=== PATIENT | male | born 1970 | race Caucasian/White ===

== ENCOUNTER 2017-04-24 04:25 | Inpatient (IN) | payer OTHER ==
[~2017-04-24] VITALS: Ht 172.7 cm; Wt 76.7 kg
--- NOTE | ~2017-04-24 | S ---
[facility] [place] [address] SURGICAL PATH RPT PROCEDURE Name: SHARON CORBIN Room #: 306-P [facility] IN M.R.#: [id number] Admission: 04/24/17 Date of : 66 Discharge: 04/26/17 Report #: [id number] Path Case #: [id number] PATHOLOGY REPORT COLLECTION DATE: 04/25/2017 RECEIVED DATE: 04/26/2017 SUBMITTING PHYS: Dr. Dony Gonzales OTHER PHYS: Dr. Roberto Thomas SPECIMEN(S) RECEIVED: A.Gallbladder * * * * * * * * * * * * FINAL DIAGNOSIS: Gallbladder, cholecystectomy: - Marked acute and hemorrohagic cholecystitis associated with ulceration. - Cholelithiasis. PATHOLOGIST: Tamia Blair M.D. REPORT ELECTRONICALLY SIGNED BY: Tamia Blair M.D. DATE/TIME: 04/27/2017 12:42 * * * * * * * * * * * * GROSS PATHOLOGY: Received in formalin labeled "Sharon Corbin, gallbladder," is a 6.5 x 2.4 x 2.2 cm, previously opened gallbladder with pink-collins and shaggy serosal surfaces. The previously opened gallbladder reveals velvety and light brown mucosa and an average wall thickness of 0.1 cm. A single dark brown, granular calculus is present and no masses are noted grossly. High School Band Teacher sections from the body and fundus are submitted along with the proximal margin in cassette A1. (KAH; 04/26/2017) CLINICAL HISTORY: Acute cholecystitis with cholelithiasis INITIAL CPT CODE(S): A; 25279 Professional services performed by [facility] at [facility] [address], [place] [address] Technical services performed by [facility] at [address] [place] [address] [place] [address] SURGICAL PATH RPT PROCEDURE Name: SHARON CORBIN Room #: 306-P [facility] IN M.R.#: [id number] Admission: 04/24/17 Date of : 66 Discharge: 04/26/17 Report #: [id number] Path Case #: [id number] [address]. [facility] [address] [address] PHONE: [phone] DIRECTOR: Joey Escamilla M.D. * * * END OF REPORT * * *
--- NOTE | ~2017-04-24 | D ---
[facility] [place] [address] DISCHARGE SUMMARY Name: SHARON HELLER Room #: 306-P [facility] IN ..#: [id number] Admission: 04/24/17 Attend Phys: Roberto Tello MD Discharge: 04/26/17 Date of : 66 Report #: [id number] THIS REPORT FOR: //name// CC: NEIDA physician/PCP Roberto Tello DATE OF SERVICE: 04/26/2017 HISTORY OF PRESENT ILLNESS: The patient is a 46-year-old man with no major problems, who was admitted to the hospital for abdominal pain. The patient was found to have cholecystitis. On the CT scan, he also had questionable celiac artery dissection, but based on interventional radiologist evaluation, that was chronic finding, and very unlikely cause of abdominal pain. HOSPITALIZATION COURSE: The patient was hospitalized at [facility]. Lipase level was normal. General surgeon was consulted. The patient had cholecystectomy on 04/25/2017. Postop course was uncomplicated, and the patient did well after surgery. His p.o. intake currently is well established. Currently, the patient's condition is acceptable, as documented in the patient's chart. DISCHARGE DIAGNOSES: 1. Cholelithiasis and cholecystitis, status post cholecystectomy on 04/25/2017. 2. Chronic celiac artery dissection, observed 2 years ago and on this admission on the CT scan. Seen by interventional radiologist, and no further treatment was recommended at this time. 3. Leukocytosis, resolving. 4. History of meth and marijuana abuse. DISCHARGE MEDICATIONS: Please refer to the medication reconciliation list. FOLLOWUP PLAN: 1. Follow up in general surgery clinic as advised. 2. Follow up with the primary care physician as planned. By: 1037 1625 Roberto Tello MD /nt
--- NOTE | ~2017-04-24 | O ---
[facility] [place] [address] OPERATIVE REPORT Name: SHARON HELLER Room #: 306-P [facility]..#: [id number] Admission: 04/24/17 Attend Phys: Roberto Tello MD Discharge: 04/26/17 Date of : 66 Report #: [id number] THIS REPORT FOR: //name// CC: NEIDA physician/PCP Roberto Tello DATE OF SERVICE: 04/25/2017 PREOPERATIVE DIAGNOSES: Acute cholecystitis with cholelithiasis. POSTOPERATIVE DIAGNOSES: Acute cholecystitis with cholelithiasis. OPERATIVE PROCEDURE: Laparoscopic cholecystectomy with intraoperative cholangiogram. SURGEON: Dony Gonzales M.D. REGISTERED NURSES: Galileo Thomas M.D. INDICATIONS: This 46-year-old male has 24-48 hours of upper abdominal pain associated with CT scan demonstrating acute cholecystitis and cholelithiasis. No other intra-abdominal pathology is noted. The patient's liver function tests are within normal limits. OPERATIVE PROCEDURE: The patient had a thorough discussion of procedure, benefits and risks. He gave informed consent to proceed. He was on preoperative IV antibiotics. He was brought to the operating room suite and had satisfactory induction of general endotracheal anesthesia. The patient's entire abdomen was prepped and draped in usual sterile procedure with DuraPrep solution. After draping was completed, an appropriate timeout was then performed. 0.5% plain Naropin was injected at all 4 trocar sites. Initially, an infraumbilical cutdown was performed with the visualization into the peritoneal cavity under direct control; 12 mm trocar port was then placed under direct control. The balloon inflated. Pneumoperitoneum was established. The patient was placed in reverse Trendelenburg position. An upper 5 mm midline trocar was placed just to the right of the falciform ligament. Two lateral 5 mm trocar ports were placed under direct vision. The gallbladder was somewhat thickened, slightly contracted with a large stone present. The wall was thickened. The gallbladder was grasped and retracted in a cephalad and lateral manner. The cystic duct triangle was clearly delineated. The cystic duct was identified. It was milked in a retrograde manner. A clip was placed toward the gallbladder. A cystotomy was performed and the taut cholangiocatheter was inserted under direct vision. Catheter was held in place with a clip. An intraoperative cholangiogram demonstrated free flow of contrast into the duodenum. The proximal hepatic biliary ductal system was well visualized without filling defect. The taut catheter was removed. The cystic duct was [address] [address] OPERATIVE REPORT Name: HELLERSHARON Room #: 306-P [facility] IN [facility].#: [id number] Admission: 04/24/17 Attend Phys: Roberto Tello MD Discharge: 04/26/17 Date of : 66 Report #: [id number] then triply ligated and divided with Sonicision. The cystic artery was identified and doubly ligated. The cystic artery was also divided with the Sonicision. The entire gallbladder was resected from the gallbladder bed with the Sonicision. After it was resected, it was placed into an Endobag and including the large stone were placed into an Endobag and removed from peritoneal cavity. A kzlhwm-[id number]-[id number] 0 PDS suture was placed at the level of the infraumbilical port incision under direct vision. The 12 mm trocar was reinstituted and inflated. Copious irrigation evacuation of all irrigating contents was accomplished. The gallbladder bed was dry. It was cauterized with the electrocautery for its entire bed of the gallbladder. Photographs were taken and made part of the medical record. Quan was sprayed into the gallbladder bed. A 15-Lithuanian HERNANDEZ drain was brought out through a lateral port site after final inspection revealing no other intraabdominal pathology. A photograph was taken of the medial aspect of the lateral lobe of the liver, which appeared to demonstrate a 2-3 cm hemangioma adjacent to the falciform ligament slightly to the left of falciform ligament. The trocars were removed under direct vision. The pneumoperitoneum was evacuated. The 0 PDS suture was ligated in place. Skin margins were approximated with subcuticular 4-0 Monocryl. Dermabond was applied. The estimated blood loss was approximately 50 mL. The patient tolerated the procedure well and he returned to the recovery room in stable and satisfactory condition. The drain was sutured in place with 2-0 nylon suture. <ELECTRONICALLY SIGNED> By: Dony Gonzales MD, FACS 04/27/17 0959 [id number] Dony Gonzales MD, FACS /nt
--- NOTE | ~2017-04-24 | EKG ---
[place] [address] [facility] [place] [address] ELECTROCARDIOGRAM REPORT Name: SHARON HELLER Room #: [facility]#: [id number] Admission: 04/24/17 Attend Phys: Discharge: Date of : 66 Report #: [id number] THIS REPORT FOR: //name// 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 04/24/17 [id number] Ez Barraza MD, FACC /EPI
--- NOTE | ~2017-04-24 | H ---
[facility] [place] [address] HISTORY AND PHYSICAL Name: SHARON HELLER Room #: 306-P ADM IN M.R.#: [id number] Admission: 04/24/17 Attend Phys: Roberto Tello MD Discharge: Date of : 66 Report #: [id number] THIS REPORT FOR: //name// CC: NEIDA physician/PCP Roberto Tello DATE OF SERVICE: 04/24/2017 CHIEF COMPLAINT: Abdominal pain. HISTORY OF PRESENT ILLNESS: The patient is a 46-year-old man who presented to the emergency room with abdominal pain, that was started around 01:30 a.m. The patient states that the pain started suddenly. He had abdominal pain about a year ago, and at that time, he was diagnosed with pancreatitis. At this time, his lipase level is normal. The patient has no major medical problems. He had CT scan of the abdomen in the emergency room that revealed large gallstone. Right upper quadrant ultrasound was consistent with possible cholecystitis. The patient has mild leukocytosis, but otherwise he has been stable. CT of the abdomen also showed possible celiac artery dissection. Interventional radiologist is already consulted. According to the report I received from the emergency room, this is unlikely to be an acute issue and the patient will be followed. The patient has already seen by general surgeon and he will likely have cholecystectomy. PAST MEDICAL HISTORY: History of pancreatitis about a year ago. CURRENT MEDICATIONS: [place] as needed. FAMILY HISTORY: Reviewed and not pertinent to the current condition. SOCIAL HISTORY: The patient uses methamphetamines and marijuana. He quit drinking alcohol 4-5 years ago. He smokes cigarettes. REVIEW OF SYSTEMS: As above in the HPI section, all others negative. PHYSICAL EXAMINATION: GENERAL: The patient is healthy looking young man, who is uncomfortable due to ongoing symptoms. VITAL SIGNS: His blood pressure is 108/68, heart rate is 62, respirations are 16 and temperature is 97.8. HEENT EXAMINATION: Pupils are equal. Eye movements are intact. Oral mucosa is dry. NECK: JVD is not present. Thyromegaly is not palpated. [facility] [address] [place] [address] HISTORY AND PHYSICAL Name: SHARON HELLER Room #: 306-P [facility] IN [facility].#: [id number] Admission: 04/24/17 Attend Phys: Roberto Tello MD Discharge: Date of : 66 Report #: [id number] RESPIRATORY EXAMINATION: The patient has clear lungs bilaterally. Chest moves with breathing symmetrically. CARDIOVASCULAR EXAMINATION: The patient has normal S1 and S2. He has regular rhythm and rate. GASTROINTESTINAL EXAMINATION: The patient has tenderness mostly in the epigastric region and right upper quadrant, which is worse with inspiration. He has diminished bowel sounds. He has no rebound tenderness. MUSCULOSKELETAL EXAMINATION: The patient has no joint deformities. His range of motion is normal. NEUROLOGICAL EXAMINATION: The patient is alert and oriented times 3. His examination is nonfocal. SKIN EXAMINATION: Skin is dry and warm. Skin lesions are not appreciated. LABORATORY DATA: Metabolic profile is essentially normal. Liver function tests are normal. Bilirubin is also normal. Actually troponin is undetectable. Lipase level is normal at 172. On CBC, white count is 15.3 with lymphocytes of 21, bands of 3% and neutrophils 66.6%. Hemoglobin is 13.2, hematocrit is 48.3 and platelets are 309,000. Imaging study results, as above in the HPI section. ASSESSMENT AND PLAN: 1. Cholecystitis. General surgeon is consulted. The patient will likely have cholecystectomy. Consultation is very much appreciated. 2. Possible celiac artery dissection based on the CT scan report. As noted, the films were already reviewed by interventional radiologist and this does not seem to be an acute problem. Consultation is appreciated. 3. Pain and nausea, related to cholecystitis, symptomatic treatment will be continued. 4. Marijuana and methamphetamine abuse. Advised to quit. No evidence of withdrawal. 5. Leukocytosis. Although the patient does not have findings of systemic infection, we will start him on empiric antibiotics for now, which will be de-escalated as possible. By: 1215 1258 Roberto Tello MD /nt
--- NOTE | ~2017-04-24 | HC ---
[facility] [place] [address] CONSULTATION Name: HELLERSHARON Priti Room #: 306-P [facility] IN ..#: [id number] Admission: 04/24/17 Attend Phys: Roberto Tello MD Discharge: 04/26/17 Date of : 66 Report #: [id number] THIS REPORT FOR: //name// CC: NEIDA physician/PCP Roberto Tello DATE OF SERVICE: 04/24/2017 HISTORY OF PRESENT ILLNESS: I have been asked to evaluate this 46-year-old male who presented to the Emergency Department with a chief complaint of abdominal pain. The abdominal pain began abruptly at approximately 0100, the patient states the pain started suddenly, awakened him from sleep. He has had a similar episode one year ago and was admitted and diagnosed with pancreatitis. He has known gallbladder disease since that time. The patient also had a CT scan in the Emergency Department, demonstrating a large gallbladder stone with sludge. The patient has a normal lipase level at this time. The pain radiated across his upper abdomen and he has had no associated nausea or vomiting. The pain has been somewhat unrelenting. The CT of the abdomen also demonstrated a possible celiac artery stricture or dissection. Interventional Radiology does not confirm this, this has been present on previous CT scans. PAST MEDICAL HISTORY: History of pancreatitis 1 year ago. PAST SURGICAL HISTORY: Negative. MEDICATIONS: Currently, hydrocodone as needed. FAMILY HISTORY: Unremarkable. 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 The patient uses amphetamines and marijuana on a fairly regular basis. He also quit drinking significant alcohol approximately 4-5 years ago. He has 20-plus pack year history of cigarette smoking. REVIEW OF SYSTEMS: A 10-point review of systems essentially negative except for recent onset of the acute abdominal pain. PHYSICAL EXAMINATION: GENERAL: Reveals a well-developed, well-nourished male, in some distress. He is afebrile. VITAL SIGNS: Stable. HEENT: Pupils are equal. No scleral icterus is noted. NECK: Supple, no adenopathy. LUNGS: Clear at the bases bilaterally. CARDIOVASCULAR: Regular rate and rhythm. ABDOMEN: Marked tenderness in the midepigastric and right upper quadrant. No [facility] [address] [place] [address] CONSULTATION Name: SHARON HELLER Room #: 306-P [facility] IN [facility]#: [id number] Admission: 04/24/17 Attend Phys: Roberto Tello MD Discharge: 04/26/17 Date of : 66 Report #: [id number] palpable mass. No scars from previous surgery. RECTAL: Not performed. NEUROLOGIC: Oriented x 3, bilateral motor symmetry. LABORATORY DATA: Review of laboratory demonstrates liver function tests within normal limits. The patient does have a leukocytosis of 15,300 with a left shift. CT scan is consistent with cholelithiasis and thickening of the gallbladder wall. DIAGNOSTIC IMPRESSION: Acute cholecystitis with cholelithiasis. I will recommend IV antibiotics, proceeding with laparoscopic cholecystectomy in the a.m. Thank you for allowing us to participate in his care. <ELECTRONICALLY SIGNED> By: Dony Gonzales MD, FACS 04/27/17 0959 1346 0006 Dony Gonzales MD, FACS /nt
[~2017-04-24 04:25] MED LIST: NORCO 5-325 TA1 EACH PO; REGLAN 10 MG TA10 MG PO
[2017-04-24 04:30] VITALS: BP 144/73
[2017-04-24 05:07] LABS: ABSOLUTE NEUTROPHILS 10.2 thou/uL (1.4-8.2); BASOPHILS 0.6 % (0.0-2.0); HEMATOCRIT 40.3 % (42.0-52.0); HEMOGLOBIN 13.2 gm/dL (14.0-18.0); LYMPHOCYTES 21.5 % (24.0-44.0); MCH 28.9 pg (26.0-34.0); MCHC 32.7 g/dL (28.0-37.0); MCV 88.5 fL (80.0-100.0); MONOCYTES 7.3 % (1.0-8.0); PLATELET COUNT 309 thou/uL (150-400); POLYS 66.6 % (36.0-66.0); RBC 4.55 mil/uL (4.50-6.00); RDW 13.8 % (10.5-14.5); WBC 15.3 thou/uL (4.0-11.0)
[2017-04-24 05:08] LABS: MANUAL DIFF NO
[2017-04-24 05:16] LABS: ANION GAP 10 mmol/L (7-16); BUN 18 mg/dL (7-18); CALCIUM 9.2 mg/dL (8.5-10.1); CHLORIDE 107 mmol/L (98-107); CO2 27 mmol/L (21-32); CREATININE 1.2 mg/dL (0.7-1.3); GLUCOSE 134 mg/dL (74-106); POTASSIUM 4.2 mmol/L (3.5-5.1); SODIUM 144 mmol/L (136-145)
[2017-04-24 05:25] LABS: ALBUMIN 4.1 g/dL (3.4-5.0); ALKALINE PHOSPHATASE 67 U/L (46-116); DIRECT BILIRUBIN < 0.1 mg/dL (<0.1-0.3); SGOT 16 U/L (15-37); SGPT 25 U/L (30-65); TOTAL BILIRUBIN 0.2 mg/dL (<0.1-1.0); TOTAL PROTEIN 7.8 g/dL (6.4-8.2); TROPONIN-I < 0.04 ng/mL (<0.04-0.07)
[2017-04-24 09:14] LABS: URINE BILIRUBIN NEGATIVE (Negative); URINE BLOOD NEGATIVE (Negative); URINE COLOR YELLOW; URINE GLUCOSE-RANDOM* NEGATIVE (Negative); URINE KETONES NEGATIVE (Negative); URINE NITRITE NEGATIVE (Negative); URINE PROTEIN (DIPSTICK) NEGATIVE (Negative); URINE UROBILINOGEN 0.2 E.U./dl (0.2-1.0)
[2017-04-24 10:04] VITALS: BP 108/68
[2017-04-24 16:45] VITALS: BP 107/73
[2017-04-24 20:10] VITALS: BP 103/72
[2017-04-25] VITALS (10 sets, daily range): BP systolic 104–125; BP diastolic 61–76
[2017-04-25 05:51] LABS: ABSOLUTE NEUTROPHILS 7.2 thou/uL (1.4-8.2); BASOPHILS 0.5 % (0.0-2.0); EOSINOPHILS 3.2 % (0.0-3.0); HEMATOCRIT 36.7 % (42.0-52.0); HEMOGLOBIN 12.5 gm/dL (14.0-18.0); LYMPHOCYTES 17.9 % (24.0-44.0); MCH 29.8 pg (26.0-34.0); MCV 87.6 fL (80.0-100.0); MONOCYTES 7.8 % (1.0-8.0); PLATELET COUNT 268 thou/uL (150-400); POLYS 70.6 % (36.0-66.0); RBC 4.18 mil/uL (4.50-6.00); RDW 13.6 % (10.5-14.5); WBC 10.2 thou/uL (4.0-11.0)
[2017-04-25 06:01] LABS: MANUAL DIFF NO
[2017-04-25 06:22] LABS: ALBUMIN 3.1 g/dL (3.4-5.0); CALCIUM 8.4 mg/dL (8.5-10.1); CREATININE 0.9 mg/dL (0.7-1.3); POTASSIUM 3.8 mmol/L (3.5-5.1); TOTAL BILIRUBIN 0.7 mg/dL (<0.1-1.0)
[2017-04-25 21:16] LABS: HEMATOCRIT 37.2 % (42.0-52.0); HEMOGLOBIN 12.4 gm/dL (14.0-18.0); MCH 29.3 pg (26.0-34.0); MCHC 33.3 g/dL (28.0-37.0); MCV 87.9 fL (80.0-100.0); RBC 4.24 mil/uL (4.50-6.00); RDW 13.4 % (10.5-14.5); WBC 11.6 thou/uL (4.0-11.0)
[2017-04-26 00:13] VITALS: BP 110/73
[2017-04-26 04:19] VITALS: BP 110/67
[2017-04-26 07:34] VITALS: BP 131/66
[2017-04-26] MEDS ORDERED: FLAGYL500 MG PO ×2 (10:41→10:44)
[2017-04-26] MEDS ORDERED: CEFPODOXIME PR200 M1 PO ×2 (10:42→10:44)
[2017-04-26] MEDS ORDERED: ONDANSETRON HCL4 M2 PO ×2 (10:42→10:44)
[2017-04-26] MEDS ORDERED: HYDROCODONE-APA1 TA1 PO (10:42)
[2017-04-26 11:46] VITALS: BP 131/66
== END 2017-04-26 12:10 | disposition home or self-care (01) | DRG 417 ==
LOC: ER 04:25 → 3N 09:26 → EROBS 09:26 → 3N 10:20
PROVIDERS: Emergency Medicine; Internal Medicine Endocrinology, Diabetes & Metabolism; Surgery
DX: K80.00 Calculus of gallbladder with acute cholecystitis without obstruction (principal); I77.79 Dissection of other specified artery; F17.210 Nicotine dependence, cigarettes, uncomplicated; F15.10 Other stimulant abuse, uncomplicated; F12.10 Cannabis abuse, uncomplicated; D72.829 Elevated white blood cell count, unspecified; Z88.0 Allergy status to penicillin; Z88.6 Allergy status to analgesic agent; Z79.899 Other long term (current) drug therapy
CPT/HCPCS: 10096; 50010; 50101; 50249; 50331; 50411; 50555; 50558; 50900; 50944; 50962; 51489; 51975; 52265; 52266; 52287; 53307; 54022; 54118; 55245; 55317; 56462; 56525; 56639; 62110; 62900; 70005

== ENCOUNTER 2021-12-12 03:30 | Inpatient (IN) | payer OTHER ==
[2021-12-12] VITALS (8 sets, daily range): BP systolic 101–150; BP diastolic 57–87
[~2021-12-12] VITALS: Ht 172.7 cm; Wt 81.6 kg
[~2021-12-12 03:30] MED LIST changes: +CEFPODOXIME PR200 M1 PO; +FLAGYL500 MG PO; +HYDROCODONE-APA1 TA1 PO; +ONDANSETRON HCL4 M2 PO
[2021-12-12 04:08] LABS: HEMATOCRIT 38.1 % (42.0-52.0); HEMOGLOBIN 12.4 gm/dL (14.0-18.0); MCH 28.9 pg (26.0-34.0); MCHC 32.6 g/dL (28.0-37.0); MCV 88.5 fL (80.0-100.0); RBC 4.3 mil/uL (4.50-6.00); RDW 14.1 % (10.5-14.5)
[2021-12-12 04:11] LABS: CALCIUM 9.6 mg/dL (8.5-10.1); CREATININE 1.4 mg/dL (0.7-1.3); POTASSIUM 4.8 mmol/L (3.5-5.1)
[2021-12-12 04:16] LABS: ALBUMIN 4.2 g/dL (3.4-5.0); TOTAL BILIRUBIN 0.2 mg/dL (0.2-1.0); TOTAL PROTEIN 7.7 g/dL (6.4-8.2)
[2021-12-12 04:55] LABS: URINE BILIRUBIN NEGATIVE (Negative); URINE BLOOD NEGATIVE (Negative); URINE CLARITY CLEAR; URINE COLOR YELLOW; URINE GLUCOSE-RANDOM* NEGATIVE (Negative); URINE KETONES NEGATIVE (Negative); URINE LEUKOCYTES-REFLEX NEGATIVE (Negative); URINE NITRITE-REFLEX NEGATIVE (Negative); URINE PROTEIN (DIPSTICK) NEGATIVE (Negative); URINE UROBILINOGEN 0.2 E.U./dl (0.2-1.0)
--- NOTE | 2021-12-12 11:15 | NUR ---
PT CAME UP FROM EMERGENCY ROOM AT 0700, CO OF BILATERAL ABDOMINAL/FLANK PAIN. PT STATED HE GETS KIDNEY STONES EVERY THREE MONTHS AND IS SELF MANAGED AT HOME. PT GIVEN IV MORPHINE BEFORE ADMISSION. CAME TO UNIT WITH BP OF 80/40 AND BOLUSED WITH 1000 CC OF NS. BP INCREASED TO 150/82. GAVE ANOTHER DOSE OF MORPHINE AND PTS PAIN IS NOW A 3/10. KEEPING PT NPO UNTIL UROLOGY ASSESSES PT THIS AFTERNOON. WILL CONITNUE TO MONITOR.
[2021-12-13 05:56] LABS: HEMATOCRIT 33.9 % (42.0-52.0); HEMOGLOBIN 11.1 gm/dL (14.0-18.0); MCH 28.9 pg (26.0-34.0); MCHC 32.8 g/dL (28.0-37.0); MCV 87.9 fL (80.0-100.0); RBC 3.85 mil/uL (4.50-6.00); RDW 13.9 % (10.5-14.5); WBC 3.2 thou/uL (4.0-11.0)
--- NOTE | 2021-12-13 06:02 | NUR ---
PT IN LARGE AMOUTN OF PAIN OVERNIGHT, ESPECIALLY WHEN VOIDING. PT REPORTS THAT HE "NEEDS TO PUSH SOMETHING OUT" WHILE POINTING TO HIS R. MID-FLANK AREA. PT EDUCATED ON STENT PLACEMENT, REMOVAL, AND RELAXATION TECHNIQUES. PT REPORTS THAT IT HAS BEEN EXTREMELY PAINFUL TO VOID FOR 3 YEARS. PT BLADDERSCANNED AT 0400- 350ML IN BLADDER. IV INFUSING PER ORDERS. PRN PAIN MEDS GIVEN. PT HAS BEEN BRADICARDIC ON THE 40-50S OVERNIGHT
[2021-12-13 06:08] LABS: CALCIUM 8.2 mg/dL (8.5-10.1); CREATININE 1.4 mg/dL (0.7-1.3); MAGNESIUM 1.7 mg/dL (1.8-2.4); POTASSIUM 4.5 mmol/L (3.5-5.1)
[2021-12-13 08:29] VITALS: BP 118/74
--- NOTE | 2021-12-13 12:47 | NUR ---
A/O X 4. ROOM AIR. AD ALMA. ABD PAIN 04/29 IV MORPHINE GIVEN VIA LEFT AC PIV PRN. NS INFUSING @ 125 MLS/HR. POSSIBLE D/C HOME TODAY.
[2021-12-13 20:58] VITALS: BP 103/53
--- NOTE | 2021-12-14 05:15 | NUR ---
INCREASED PAIN THIS SHIFT WHEN ATTEMPTING TO VOID. PT REFUSED TELE OVER NIGHT. PT REPORTS HE IS ATTEMPTING TO "PUSH THE STENT THINGY OUT" BECAUSE "FEELS LIKE IT NEEDS TO MOVE". EDUCATION PROVIDED. PT REQUESTED FRANCO PLACEMENT OVERNIGHT THE PAIN WAS "UNBEARABLE". REVIEWED MORE APPROPRIATE VOIDING PRACTICES WITH PT AND NOTIFIED INHOUSE AIR POLLUTION CONTROL ENGINEER. POST VOID RESIDUALS ASSESS- NO RESIDUAL WAS GREATER THAN 300ML. DISCUSSED SMOKING SESSATION AND DIET ALTERNATIVES THAT COULD ASSIST IN REDUCTION ON STONE PRODUCTION, AT THIS TIME PT REPORTED THAT HE HAS SMOKED MARIJANA & METH "WHENEVER I AM AWAKE FOR PROBABLY THE LAST 10 YEARS". PT REPORTS LAST METH USE PRIOR TO THIS ADM. PT THEN STATED "I GUESS I SHOULD HAVE TOLD YOU GUYS THAT SOONER" PAIN MODERATELY MANAGED WITH PRN TREATMENT. PT REPORTS MEDS DO NOT WORK AND HE WOULD JUST LIKE TO SLEEP.
[2021-12-14 06:25] LABS: HEMATOCRIT 40.3 % (42.0-52.0); MCH 29.3 pg (26.0-34.0); MCHC 32.2 g/dL (28.0-37.0); MCV 91.1 fL (80.0-100.0); RBC 4.43 mil/uL (4.50-6.00); RDW 14.7 % (10.5-14.5); WBC 5.2 thou/uL (4.0-11.0)
[2021-12-14 08:42] VITALS: BP 112/70
[2021-12-14] MEDS ORDERED: PHENAZOPYRIDIN100 M1 PO (13:01)
[2021-12-14] MEDS ORDERED: FLOMAX0.4 MG PO (13:01)
[2021-12-14] MEDS ORDERED: HYOSCYAMINE0.125 M1 SUBLING (13:01)
[2021-12-14 13:21] VITALS: BP 112/70
--- NOTE | 2021-12-15 10:08 | PATH ---
[facility] [place] [address] PATHOLOGY RPT PROCEDURE Name: SHARON CORBIN Room #: 448-P [facility] IN M.R.#: [id number] Admission: 12/12/21 Date of : 66 Discharge: 12/14/21 Report #: [id number] Path Case #: [id number] [facility] Accession Number: [id number] . 01 Material submitted: . ureter - RIGHT URETERAL STONES. Modifiers: right . 01 Clinical history: . URETEROSCOPY, STONE MANIPULATION STENT INSERTION RIGHT URETERAL STONE . 02 Diagnosis: Right ureteral calculi: - Consistent with calculi. - The specimen is sent out for further processing. Report pending outside analysis with results to follow in an addendum. MBR 12/13/2021 1648 Local . 02 Electronically signed: . Michael Niño MD, Pathologist NPI- [id number] . 01 Gross description: . The specimen is received fresh, labeled "Sharon Corbin, right ureteral stones". Received are multiple dark brown calculi measuring 0.5 x 0.4 x 0.3 to 0.6 x 0.5 x 0.4 cm. The specimen is forwarded to sendouts for further processing. ([facility]; 12/13/2021) [facility] 12/13/2021 1645 Local . 02 Pathologist provided ICD-10: N20.1 . 02 CPT . 998324 Specimen Comment: A courtesy copy of this report has been sent to [phone] Specimen Comment: [id number] Specimen Comment: Report sent to / DR LEIGH Specimen Comment: A duplicate report has been generated due to demographic updates. Performed at: [address] [id number] MD Roshan Muro MD Phone: [phone] Performed at: [address] [address] PATHOLOGY RPT PROCEDURE Name: SHARON CORBIN Room #: 448-P [facility] IN M.R.#: [id number] Admission: 12/12/21 Date of : 66 Discharge: 12/14/21 Report #: [id number] Path Case #: [id number] [address], [place] [id number] MD Michael Niño MD Phone: [phone]
== END 2021-12-14 17:55 | disposition home or self-care (01) | DRG 659 ==
LOC: ER 03:30 → EROBS 05:59 → 4S 05:59
PROVIDERS: Emergency Medicine; Internal Medicine; Nurse Practitioner; ADMIT Internal Medicine; ATTEND Internal Medicine
PROC: BT1D1ZZ Fluoroscopy of Right Kidney, Ureter and Bladder using Low Osmolar Contrast (ICD-10-PCS; principal; 2021-12-12)
PROC: 0T768DZ Dilation of Right Ureter with Intraluminal Device, Via Natural or Artificial Opening Endoscopic (ICD-10-PCS; principal; 2021-12-12)
PROC: 0TC68ZZ Extirpation of Matter from Right Ureter, Via Natural or Artificial Opening Endoscopic (ICD-10-PCS; principal; 2021-12-12)
DX: N20.2 Calculus of kidney with calculus of ureter (principal); K85.90 Acute pancreatitis without necrosis or infection, unspecified; N17.9 Acute kidney failure, unspecified; F17.210 Nicotine dependence, cigarettes, uncomplicated; F19.10 Other psychoactive substance abuse, uncomplicated; Z20.822 Contact with and (suspected) exposure to COVID-19; Z90.49 Acquired absence of other specified parts of digestive tract; Z88.0 Allergy status to penicillin; Z88.8 Allergy status to other drugs, medicaments and biological substances
CPT/HCPCS: 10100; 50010; 50101; 50164; 51620; 51767; 56674; 56815; 57160; 58510; 58565; 62110; 62900; 70005

== ENCOUNTER 2021-12-19 15:08 | Inpatient (IN) | payer OTHER ==
[~2021-12-19] VITALS: Ht 172.7 cm; Wt 73.0 kg
[~2021-12-19 15:08] MED LIST changes: +FLOMAX0.4 MG PO; +HYOSCYAMINE0.125 M1 SUBLING; +PHENAZOPYRIDIN100 M1 PO
[2021-12-19 15:28] VITALS: BP 113/60
[2021-12-19 16:13] LABS: MCH 28.3 pg (26.0-34.0); MCHC 32.6 g/dL (28.0-37.0); MCV 86.8 fL (80.0-100.0); PLATELET COUNT 253 thou/uL (150-400); RBC 4.26 mil/uL (4.50-6.00); RDW 13.9 % (10.5-14.5)
[2021-12-19 16:22] LABS: CALCIUM 8.8 mg/dL (8.5-10.1); CREATININE 1.8 mg/dL (0.7-1.3); POTASSIUM 4.6 mmol/L (3.5-5.1)
[2021-12-19 16:29] LABS: TOTAL BILIRUBIN 0.8 mg/dL (0.2-1.0); TOTAL PROTEIN 7.5 g/dL (6.4-8.2)
[2021-12-19 16:36] LABS: ABSOLUTE NEUTROPHILS 22.3 thou/uL (1.4-8.2)
--- NOTE | 2021-12-19 17:10 | NUR ---
ATTEMPT TO PUT FRANCO IN UNSUCCESSFUL. EDP NOTIFIED, WILL WAIT FOR CT SCAN RESULTS
[2021-12-19 18:32] VITALS: BP 108/63
[2021-12-19 19:49] VITALS: BP 95/61
[2021-12-20 04:31] VITALS: BP 98/32
[2021-12-20 04:42] LABS: ABSOLUTE NEUTROPHILS 26.9 thou/uL (1.4-8.2); BASOPHILS 0.2 % (0.0-2.0); HEMATOCRIT 36.9 % (42.0-52.0); HEMOGLOBIN 11.5 gm/dL (14.0-18.0); LYMPHOCYTES 2.2 % (24.0-44.0); MCH 27.8 pg (26.0-34.0); MCHC 31.1 g/dL (28.0-37.0); MCV 89.6 fL (80.0-100.0); MONOCYTES 4.1 % (1.0-8.0); PLATELET COUNT 198 thou/uL (150-400); POLYS 93.5 % (36.0-66.0); RBC 4.12 mil/uL (4.50-6.00); RDW 14.9 % (10.5-14.5); WBC 28.7 thou/uL (4.0-11.0)
[2021-12-20 05:02] LABS: ALBUMIN 2.4 g/dL (3.4-5.0); CALCIUM 7.8 mg/dL (8.5-10.1); CREATININE 1.6 mg/dL (0.7-1.3); MAGNESIUM 1.5 mg/dL (1.8-2.4); PHOSPHORUS 2.3 mg/dL (2.6-4.7); POTASSIUM 4.3 mmol/L (3.5-5.1); TOTAL BILIRUBIN 0.9 mg/dL (0.2-1.0); TOTAL PROTEIN 6.5 g/dL (6.4-8.2)
--- NOTE | 2021-12-20 06:45 | NUR ---
Patient is alert and oriented x4. He is on enhanced precautions. Patient is on room air. Patient is MS tele and has been running sinus tachy/ sinus rhythm this shift. patients is continent of both bowel and bladder this shift. patient is steady on his feet. patient had and IV in his right forearm at the beginning of this shift. IV was accidentally pulled out by patient when he was trying to sit up this AM. Patient has a new IV placed in his right AC that is currently infusing with his magnesium replacement/ normal saline at 100 mL's per hour. patient will continue to be monitored.
--- NOTE | 2021-12-20 07:33 | EKG ---
[address] [address] ELECTROCARDIOGRAM REPORT Name: SHARON HELLER Room #: 363-P ADM IN M.R.#: [id number] Admission: 12/19/21 Attend Phys: Carly Flores MD Discharge: Date of : 66 Report #: [id number] 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: : 1970 Requested By: Maine Bueno Order Number: [id number] : João Velez Measurements Intervals [place] Rate: 100 P: 72 WI: 112 QRS: 72 QRSD: 88 T: 63 QT: 309 QTc: 399 Interpretive Statements Sinus tachycardia Compared to ECG 04/24/2017 04:42:57 Sinus bradycardia no longer present Electronically Signed On 12-20-2021 7:32:46 DECKHAND MAINTENANCE by João Velez [email or web address] <ELECTRONICALLY SIGNED> By: João Velez MD, [facility] 12/20/21 0732 1600 [facility] João Velez MD FACC /EPI
[2021-12-20 07:54] VITALS: BP 92/63
--- NOTE | 2021-12-20 09:37 | NUR ---
RD consulted. Admit with pyelonephritis and COVID+. Hx marijuanna and meth use, pancreatitis. Intake 60-70%, possible 5 lb wt loss from last week. BG elevated likely with steroid and and has ss insulin orders. Will add 1 glucerna shake, otherwise low nutrition risk
[2021-12-20 12:35] LABS: URINE BILIRUBIN NEGATIVE (Negative); URINE BLOOD 3+ (Negative); URINE CLARITY CLEAR; URINE COLOR YELLOW; URINE GLUCOSE-RANDOM* NEGATIVE (Negative); URINE KETONES NEGATIVE (Negative); URINE LEUKOCYTES-REFLEX TRACE (Negative); URINE NITRITE-REFLEX NEGATIVE (Negative); URINE PROTEIN (DIPSTICK) 1+ (Negative); URINE SPECIFIC GRAVITY >= 1.030 (1.005-1.035)
[2021-12-20 12:55] LABS: CASTS None Seen /LPF (None Seen); MUCUS 4-6 Moderate strn/LPF (None Seen); SQUAMOUS 0-3 Few /LPF (0-3)
[2021-12-20 12:57] LABS: BACTERIA-REFLEX 1-9 Few /HPF (None Seen); CRYSTALS None Seen /LPF (None Seen); URINE RBC >20 Many /HPF (NONE SEEN); URINE WBC-REFLEX 6-15 Few /HPF (0-5)
[2021-12-20 15:34] VITALS: BP 96/63
[2021-12-20 20:13] VITALS: BP 110/69
--- NOTE | 2021-12-21 01:31 | NUR ---
PATIENT IS ALERT AND ORIENTED X4. PATIENT IS ON ENHANCED PRECAUTIONS. PATIENT IS ON ROOM AIR. PATIENT IS MS/ TELE AND HAS BEEN RUNNING SINUS RHYTHM THIS SHIFT. PATIENT TAKES HIS MEDICATIONS WHOLE. PATIENTS LAST BM WAS 12/20/21. PATIENT GETS UP INDEPENDENTLY TO USE THE TOILET. PATIENT FORGETS TO USE THE URINAL. PATIENT HAS AN IV IN HIS RIGHT AC THAT IS PATNET AND CURENTLY INFUSING WITH NORMAL SALINE AT 100 ML'S PER HOUR. PATIENT WILL CONTINUE TO BE MONITORED.
[2021-12-21 03:24] VITALS: BP 105/62
[2021-12-21 04:35] LABS: ALBUMIN 2.1 g/dL (3.4-5.0); CREATININE 1.5 mg/dL (0.7-1.3); MAGNESIUM 2.3 mg/dL (1.8-2.4); PHOSPHORUS 2.6 mg/dL (2.6-4.7); POTASSIUM 5.7 mmol/L (3.5-5.1); TOTAL BILIRUBIN 0.2 mg/dL (0.2-1.0); TOTAL PROTEIN 6.2 g/dL (6.4-8.2)
[2021-12-21 04:48] LABS: CALCIUM 8.5 mg/dL (8.5-10.1)
[2021-12-21 05:14] LABS: ABSOLUTE NEUTROPHILS 20.3 thou/uL (1.4-8.2); BASOPHILS 0.1 % (0.0-2.0); HEMATOCRIT 32.1 % (42.0-52.0); HEMOGLOBIN 10.2 gm/dL (14.0-18.0); LYMPHOCYTES 3.4 % (24.0-44.0); MCHC 31.9 g/dL (28.0-37.0); MCV 87.6 fL (80.0-100.0); MONOCYTES 1.9 % (1.0-8.0); PLATELET COUNT 236 thou/uL (150-400); POLYS 94.6 % (36.0-66.0); RBC 3.66 mil/uL (4.50-6.00); RDW 14.2 % (10.5-14.5); WBC 21.5 thou/uL (4.0-11.0)
[2021-12-21 07:08] LABS: GLYCOHEMOGLOBIN (HGB A1C) 6.2 % (4.8-5.6)
[2021-12-21 08:05] VITALS: BP 131/84
[2021-12-21 14:32] VITALS: BP 131/84
--- NOTE | 2021-12-21 14:44 | NUR ---
INITIAL ASSESSMENT: SW reviewed chart and spoke with nursing and attending physician. Pt was admitted from home due to right pyelonephritis. Pt was recently discharged home from [facility] on 12/14. Pt had positive COVID test in the ER. Pt placed in Enhanced Isolation. Pt's WBC elevated upon admission. Pt is currently afebrile and on room air. Pt is on IV abx. Urology and ID consulted. SW spoke with pt via phone. Introduced role of SW. Pt is alert/orientated x 4. Pt reports he lives at home. 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 Pt tearful during conversation stating. Emotional support provided. Pt has been started on Prozac and recommendation made for pt to follow up with an outpatient psychiatrist. SW discussed recommendation with pt. Pt is agreeable and verbalized understanding of need for follow up. Pt does not have a preference of outpatient psychiatrist. SHADIA provided contact info for [facility] in discharge summary. SW also printed list of in-network psychiatrists and provided list for nursing to provide to pt with discharge ppwk. Pt may discharge home later today, pending ID recommendation for abx. Plan is for pt to discharge home when medically stable. No SW discharge needs identified at this time. SW is available to assist should needs arise.
[2021-12-21 15:00] VITALS: BP 131/84
[2021-12-21 16:15] VITALS: BP 118/70
[2021-12-21 19:45] VITALS: BP 116/70
--- NOTE | 2021-12-22 05:50 | NUR ---
PT IS A&OX4 AND ABLE TO COMMUNICATE WANTS AND NEEDS TO STAFF. PT NOTED TO HAVE MULTIPLE OUTSIDE PSYCHOSOCIAL STRESSORS, HAD 2 TEARFUL EPISODES THIS SHIFT. RN PROVIDED THERAPEUTIC LISTENING AND COMFORT. PT WITH C/O PAINFUL URINATION R/T PREVIOUS RECENT HX OF URETHRAL STONE REMOVAL AND STENT PLACEMENT. MEDICATED X1 WITH PYRIDIUM. PROVIDED EDUCATED REGARDING SIDE EFFECTS OF MEDICATION. PT UP AD ALMA TO BR, DID HAVE BM THIS SHIFT WELL. WILL CONTINUE TO OBSERVE FOR CHANGES
[2021-12-22 05:55] VITALS: BP 119/77
[2021-12-22 08:09] VITALS: BP 152/95
--- NOTE | 2021-12-22 12:32 | NUR ---
DISCHARGE NOTE: PT LEFT APPROX 12:30 AGAINST MEDICAL ADVICE. PT WAS SITTING AND CRYING ON BED UPON ARRIVAL THIS AM. THIS RN ATTEMPTED TO CONSOLE PT, BUT PT ADAMANT ABOUT LEAVING HOSPITAL. PT STATED "I HAVE TO GET OUT OF HERE, YOU GUYS HAVE BEEN GREAT, BUT I CANT TAKE BEING HERE ANYMORE. MY ANXIETY IS OUT OF CONTROL". PT ALSO STATED "I TAKE XANEX RECREATIONALLY AND 0.25MG ISNT DOING SHIT FOR ME". THIS RN CONTACTED THE ATTENDING AND GOT PT'S XANEX TO 1MG. PT SLEPT UNTIL DISCHARGE, BUT STILL LEFT AMA. ALL BELONGINGS WITH PT. PT TELEMETRY AND IV D/C'D. PT'S GIRLFRIEND PICKED PT UP.
--- NOTE | 2021-12-22 15:00 | NUR ---
SW spoke with nursing and attending physician. Pt remains in Enhanced Isolation due to COVID. Pt may discharge home later today. Per nursing, pt might end up leaving AMA. Info placed in discharge summary and placed on pt's chart for outpatient psychiatric follow up care. SW is available to assist should needs arise.
== END 2021-12-22 12:51 | disposition left against medical advice (07) | DRG 871 ==
LOC: ER 15:08 → EROBS 17:56 → 3W 17:56
PROVIDERS: Physician Assistant; ADMIT Internal Medicine; ATTEND Internal Medicine
DX: A41.81 Sepsis due to Enterococcus (principal); U07.1 COVID-19; N10 Acute pyelonephritis; N17.9 Acute kidney failure, unspecified; F12.90 Cannabis use, unspecified, uncomplicated; F17.210 Nicotine dependence, cigarettes, uncomplicated; N20.0 Calculus of kidney; Z66 Do not resuscitate; R43.9 Unspecified disturbances of smell and taste; E83.39 Other disorders of phosphorus metabolism; Z53.29 Procedure and treatment not carried out because of patient's decision for other reasons; E83.42 Hypomagnesemia; Z87.442 Personal history of urinary calculi; Z90.49 Acquired absence of other specified parts of digestive tract; Z88.0 Allergy status to penicillin; Z88.8 Allergy status to other drugs, medicaments and biological substances; Z83.3 Family history of diabetes mellitus; Z82.49 Family history of ischemic heart disease and other diseases of the circulatory system
CPT/HCPCS: 10879

== ENCOUNTER 2021-12-30 11:26 | Emergency (ER) | payer OTHER ==
[~2021-12-30] VITALS: Ht 172.7 cm; Wt 79.4 kg
[2021-12-30 11:57] LABS: URINE BILIRUBIN NEGATIVE (Negative); URINE BLOOD 1+ (Negative); URINE CLARITY CLEAR; URINE COLOR YELLOW; URINE GLUCOSE-RANDOM* NEGATIVE (Negative); URINE KETONES NEGATIVE (Negative); URINE LEUKOCYTES-REFLEX TRACE (Negative); URINE NITRITE-REFLEX NEGATIVE (Negative); URINE PROTEIN (DIPSTICK) TRACE (Negative); URINE UROBILINOGEN 0.2 E.U./dl (0.2-1.0)
[2021-12-30 12:07] LABS: HYALINE CASTS 0-3 Few /LPF (None Seen); SQUAMOUS None Seen /LPF (0-3); URINE RBC 3-10 Few /HPF (NONE SEEN)
[2021-12-30 12:08] LABS: BACTERIA-REFLEX 1-9 Few /HPF (None Seen); CRYSTALS None Seen /LPF (None Seen); URINE WBC-REFLEX 0-5 Rare /HPF (0-5)
[2021-12-30 12:09] LABS: CALCIUM 9.4 mg/dL (8.5-10.1); CREATININE 1.5 mg/dL (0.7-1.3); POTASSIUM 3.8 mmol/L (3.5-5.1)
[2021-12-30 12:15] LABS: ABSOLUTE NEUTROPHILS 12.7 thou/uL (1.4-8.2); BASOPHILS 0.4 % (0.0-2.0); EOSINOPHILS 0.5 % (0.0-3.0); HEMATOCRIT 31.6 % (42.0-52.0); HEMOGLOBIN 10.5 gm/dL (14.0-18.0); LYMPHOCYTES 14.3 % (24.0-44.0); MCH 28.6 pg (26.0-34.0); MCHC 33.4 g/dL (28.0-37.0); MCV 85.6 fL (80.0-100.0); MONOCYTES 6.9 % (1.0-8.0); PLATELET COUNT 632 thou/uL (150-400); POLYS 77.9 % (36.0-66.0); RBC 3.69 mil/uL (4.50-6.00); RDW 14.4 % (10.5-14.5); WBC 16.3 thou/uL (4.0-11.0)
[2021-12-30 12:17] LABS: ALBUMIN 3.1 g/dL (3.4-5.0); TOTAL BILIRUBIN 0.4 mg/dL (0.2-1.0); TOTAL PROTEIN 8.1 g/dL (6.4-8.2)
--- NOTE | 2021-12-30 12:27 | EKG ---
[place] [address] [address] [facility] [place] [address] ELECTROCARDIOGRAM REPORT Name: SHARON HELLER Room #: REG [facility]#: [id number] Admission: 12/30/21 Attend Phys: Discharge: Date of : 66 Report #: [id number] [facility] ED Test Date: 2021-12-30 Test Time: 11:47:32 Pat Name: SHARON HELLER Department: Room: Gender: M Applications Processor: SEBASTIÁN : 1970 Requested By: Edwin Perez Order Number: [id number] MD: João Velez Measurements Intervals [place] Rate: 90 P: 82 VA: 117 QRS: 78 QRSD: 89 T: 72 QT: 352 QTc: 431 Interpretive Statements Sinus rhythm Borderline short VA interval Compared to ECG 12/19/2021 16:00:26 Sinus tachycardia no longer present Electronically Signed On 12-30-2021 12:27:21 A/C TECHNICIAN by João Velez [email or web address] <ELECTRONICALLY SIGNED> By: João Velez MD, [facility] 12/30/21 1227 1147 1147 João Velez MD, FACC /EPI
[2021-12-30] MEDS ORDERED: MACROBID 100 M100 MG PO (13:40)
[2021-12-30 14:10] VITALS: BP 127/73
== END 2021-12-30 14:22 | disposition home or self-care (01) ==
LOC: ER 11:26
PROVIDERS: Physician Assistant
DX: N39.0 Urinary tract infection, site not specified (principal); F10.10 Alcohol abuse, uncomplicated; F15.10 Other stimulant abuse, uncomplicated; F17.210 Nicotine dependence, cigarettes, uncomplicated; Z87.442 Personal history of urinary calculi; Z86.16 Personal history of COVID-19; Z88.0 Allergy status to penicillin; Z88.8 Allergy status to other drugs, medicaments and biological substances